=== PATIENT | female | born 2000 | race Caucasian/White ===

== ENCOUNTER 2023-06-30 07:00 | Emergency (ER) | payer OTHER, MEDICAID, SELFPAY ==
--- NOTE | ~2023-06-30 | XR_ITS ---
EXAMINATION: XR ANKLE, RIGHT CLINICAL INFORMATION: Injury COMPARISON: None available. TECHNIQUE: AP, lateral, and mortise views of the right ankle. FINDINGS: No fracture. Alignment is anatomic. No erosions. Joint spaces are maintained. Soft tissue swelling around lateral malleolus. XR/XR ankle RT 2V IMPRESSION: * No fracture. * Soft tissue swelling around lateral malleolus.
[2023-06-30 07:28] VITALS: BP 110/68; PULSE 81; RESP 16; TEMP 36.8; O2SAT 99; BMI 41.6
--- NOTE | 2023-06-30 09:03 | ED.GENADULT ---
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 Patient tripped going down two steps and roller her right ankle outwards since then has been having pain and swelling she fell and caught herself. Denies any other injuries. No headstrike or LOC, not on thinners. Denies numbness, tingling, chest pain, shortness of breath, nausea, vomiting, headache, vision changes, dizziness. Related Data Previous Rx's Medication Instructions Recorded ketorolac 10 mg tablet 10 mg PO TID PRN pain 5 days #15 06/30/23 tabs Allergies Allergy/AdvReac Type Severity Reaction Status Date / Time Penicillins Allergy Unknown Verified 06/30/23 07:27 Review of Systems Review of Systems: Constitutional : No Weight loss, No Fever, No Chills, No Fatigue, No Malaise ENT/Mouth : No sore throat, No Rhinorrhea Eyes: No Eye Pain, No Swelling, No Redness Cardiovascular : No Chest Pain, No SOB, No Dyspnea on Exertion, No Orthopnea, No Edema, No Palpitations Respiratory : No Cough, No Sputum, No Wheezing Gastrointestinal : No Nausea, No Vomiting, No Diarrhea, No Constipation, No abdominal Pain, No Hematochezia, No Melena Genitourinary : No Dysuria, No Urinary Frequency, No Hematuria, Musculoskeletal : + joint pain, No Myalgias, + Joint Swelling Skin : No Skin Lesions, No rash Neuro : No Weakness, No Numbness, No Dizziness, No Headache Psych : No Anxiety/Panic, No Depression All other systems reviewed and are negative Yes all other systems are reviewed and are negative [facility] Social History Social History Advance Directives: No Advance Directives Information Provided: No Physical Exam ED Vital Signs: Vital Signs - 24 hr 06/30/23 07:28 Temperature 98.3 F Pulse Rate 81 Respiratory Rate 16 Blood Pressure 110/68 Pulse Oximetry 99 Oxygen Delivery Method Room Air BMI result Body Mass Index 41.6 vss Appearance: Alert.? Oriented X3.? No acute distress.? Head: Normocephalic, atraumatic, no step-offs or deformities Eyes: Pupils equal, round and reactive to light.? Neck: Normal inspection.? Neck supple.? CVS: Normal heart rate and rhythm.? Pulses normal.? Respiratory: No respiratory distress.? Breath sounds normal.? Abdomen: Soft and nontender.? Skin: Skin warm and dry.? Normal skin color.? Normal skin turgor.? Extremities: No lower extremity edema.? No calf ttp. 5/5 strength to bilateral upper and lower extremities 2+ DP,AT,PT pulses equal and b/l. Full rom to b/l toes full rom to l ankle. Limited rom due to pain to right ankle. TTP overlying R. lateral malleolous. Normal senation distally Neuro: Oriented X 3.? No motor deficit.? No sensory deficit. CN 2-12 intact Course Reevaluation(s) Reevaluation #1: xray unremarkable. Will give aircast/ cruches and educate on proper use. Educated patient on diagnosis and treatment plan, answered all question, patient verbalizes understanding. At this time patient will be discharged home, advised to return with new or worsening symptoms. Educated on worrisome signs and symptoms and when to return. At this time I feel comfortable discharge home. Time: 09:16 Medical Decision Making Medical Decision Making MDM Narrative: 23 yo f presents s/p rolling her ankle on her stairs and falling PLANNING COORDINATOR PE w/ No lower extremity edema.? No calf ttp. 5/5 strength to bilateral upper and lower extremities 2+ DP,AT,PT pulses equal and b/l. Full rom to b/l toes full rom to l ankle. Limited rom due to pain to right ankle. TTP overlying R. lateral malleolous. Normal senation distally Likely sprain/strain unlikely fx/dislovation, threat to limb or NV compromise. No signs of open fx. Plan- imagng tordol, aircast and crutches. Differential Diagnosis Differential Diagnoses: The differential diagnosis associated with the presentation includes Likely sprain/strain unlikely fx/dislovation, threat to limb or NV compromise. No signs of open fx. Admission/Observation Consideration of admission/observation: Escalation of care including admission/observation considered Independent Interpretation I performed an independent interpretation of an: Plain X-Ray Radiology Impression Discussion of test interpretation with radiology: I have reviewed the radiologist's reading. Tests considered The following testing was considered but not selected: No head, chest, abd/ pelvis or cspine pain or injury somali head ct score neative neuro nonfocal No indication for imaging Prescription Management I considered prescription management with: Pain Medication (toradol ) Chronic Conditions Patient?s care impacted by: Other (No pmhx ) Critical Care Time Critical Care Time Critical Care Time: No Discharge Plan Discharge Clinical Impression: Ankle sprain and strain Patient Disposition: Home, Self-Care Instructions: Ankle Sprain (ED), Crutch Instructions (ED), Ankle Stirrup Splint (ED), R.I.C.E. Treatment (ED), Ice Pack Application (ED) Additional Instructions: Take your medications as prescribed. If you were prescribed antibiotics today, it is important that you take your medication to their entirety, do not skip any doses, do not finish them early. Follow-up with your primary care provider this week. Return to the emergency department with new or worsening symptoms. Such as fevers, chills, chest pain, shortness of breath, nausea, vomiting, dizziness, headache, vision changes, lethargy In case of emergency call 911 Toradol has been sent to your pharmacy, you tolerated this well in the department. Please take this as prescribed do not take this with ibuprofen, or other NSAIDs, do not mix this with alcohol. Side effects of this medication including increased risk for bleeding and possible kidney injury. XR/XR ankle RT 2V IMPRESSION: * No fracture. * Soft tissue swelling around lateral malleolus. Prescriptions: New ketorolac 10 mg tablet 10 mg PO TID PRN (Reason: pain) 5 Days Qty: 15 0RF Referrals: Physician,None [Primary Care Provider] - 2 days [facility] [Provider Group] - 2 days Stand Alone Forms: Work/School Release
== END 2023-06-30 09:34 | disposition home or self-care (01) ==
PROVIDERS: Emergency Provider Emergency Medicine
DX: S93.401A Sprain of unspecified ligament of right ankle, initial encounter (principal); M25.571 Pain in right ankle and joints of right foot; W10.9XXA Fall (on) (from) unspecified stairs and steps, initial encounter; Y93.9 Activity, unspecified; Y92.9 Unspecified place or not applicable; Y99.9 Unspecified external cause status
CPT/HCPCS: 29515; 73600; 99283; 99284

== ENCOUNTER 2024-01-11 11:35 | Outpatient (AMB) | payer OTHER, MEDICAID, SELFPAY ==
[2024-01-11 11:38] VITALS: BP 128/64; PULSE 97; TEMP 37.1; O2SAT 99; BMI 44.4
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
== END 2024-01-11 12:29 | disposition home or self-care (01) ==
PROVIDERS: Visit Provider Nurse Practitioner Family
DX: M79.641 Pain in right hand (principal); M79.644 Pain in right finger(s); S62.339A Displaced fracture of neck of unspecified metacarpal bone, initial encounter for closed fracture
CPT/HCPCS: 99214

== ENCOUNTER 2024-01-11 11:54 | Outpatient (REF) | payer OTHER, MEDICAID, SELFPAY ==
--- NOTE | ~2024-01-11 | XR_ITS ---
EXAMINATION: XR HAND, RIGHT CLINICAL INFORMATION: Hand pain attention to the fifth digit COMPARISON: None TECHNIQUE: 3 views of the hand FINDINGS: Acute fracture of the neck of the fifth metacarpal with mild volar angulation. Joint spaces are maintained. No cortical erosion. Soft tissue swelling along the dorsum of the hand. XR/XR hand RT min 3V IMPRESSION: 1. Acute fracture of the neck of the fifth metacarpal with mild volar angulation. 2. Soft tissue swelling along the dorsum of the hand.
== END 2024-01-11 11:55 | disposition home or self-care (01) ==
LOC: HO.HMGCX 11:54
PROVIDERS: Visit Provider Nurse Practitioner Family
DX: M79.641 Pain in right hand (principal); M79.644 Pain in right finger(s)
CPT/HCPCS: 73130

== ENCOUNTER 2024-01-13 13:02 | Outpatient (AMB) | payer OTHER, MEDICAID, SELFPAY ==
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
== END 2024-01-13 14:15 | disposition home or self-care (01) ==
PROVIDERS: Visit Provider Physician Assistant
DX: S62.336A Displaced fracture of neck of fifth metacarpal bone, right hand, initial encounter for closed fracture (principal)
CPT/HCPCS: 26600; 99204

== ENCOUNTER → 2024-01-13 13:02 | Outpatient (BNVA) | payer OTHER, MEDICAID, SELFPAY | PROVIDERS: Visit Provider Physician Assistant | DX: S62.336A Displaced fracture of neck of fifth metacarpal bone, right hand, initial encounter for closed fracture (principal) | CPT/HCPCS: 26600 ==

== ENCOUNTER 2024-01-29 07:43 | Outpatient (AMB) | payer OTHER, MEDICAID, SELFPAY ==
--- NOTE | 2024-01-29 07:57 | A.OFFVIS_ITS ---
Vital Signs 01/29/24 08:02 Height 5 ft 1 in Weight 235 lb BMI 44.4 Intake Visit Reasons: ov- cast changer- rt hand asael fx, DOI 01/11/24 Intake Note: Suzette is a 23 year old female who presents today for a cast change. Right 5th MC fx 01/11/24. Patient states that she is having numbness of the small finger as she feels that cast was squeezing the fingers on top of each other. She has her routine follow up scheduled in one week and is asking if she can be placed in a splint today rather than a cast as she is feeling claustrophobic in the cast. Allergies Penicillins Allergy (Verified 01/29/24 08:04) Unknown HPI HPI ov- cast changer- rt hand asael fx, DOI 01/11/24: Details: 23-year-old female who returns to the office today for a follow-up of right 5th metacarpal fracture, 01/11/24. She states she has numbness in her small finger due to the cast being uncomfortable and squeezing her fingers on top of each other. [facility] Social History (Updated 01/13/24 @ 13:17 by Jose E Corcoran) Alcohol intake: current Alcohol intake frequency: holidays/special occasions only Patient Tobacco Use Status: Never used Tobacco Current occupational status: employed Current occupation: domestic housekeeper/ right hand dominant Review of Systems Const All systems reviewed & are unremarkable except as noted in HPI and below Physical Exam Vital Signs: BMI result Body Mass Index 44.4 Const General: cooperative and no acute distress Orientation/consciousness: patient oriented x3 Resp Effort & Inspection: normal respiratory effort and able to speak in complete sentences Cardio Peripheral pulses: Peripheral pulses 2+ throughout Skin General skin exam: no rashes or lesions noted Neuro General: patient oriented x3 Extrem Other: Right hand:mild Tenderness to palpation over the fracture site of the 5th digits. Able to flex and extend all digits. Lacking 3 cm from making a closed fist. No scissoring of the little finger. Sensation intact. Capillary refill is brisk. Results Reviewed Results Reviewed: Xrays were obtained in the office today and personally reviewed by me of the right hand show fracture of the neck of the fifth metacarpal with mild volar angulation, stable appearance. Assessment & Plan Assessment & Plan (1) Closed boxer's fracture: Comment: Right Code(s): S62.339A - Displaced fracture of neck of unspecified metacarpal bone, initial encounter for closed fracture Category: Medical Qualifiers: Encounter type: subsequent encounter Fracture healing: with routine healing Qualified Code(s): S62.339D - Displaced fracture of neck of unspecified metacarpal bone, subsequent encounter for fracture with routine healing Plan She was transitioned to a Velcro wrist splint which she will wear like cast and only remove for hygiene. She will arsalan tape her ring finger to small finger to work on ROM. I would like to see her back in 3 weeks with x-rays, sooner if needed. Orders: Orders XR hand RT min 3V 01/29/24 M79.641 - Pain in right hand Patient Instructions: Scribed for Javon Benedict PA-C, by Ebenezer Carrera medical dir, on 01/29/2024 at 8:00 AM EST.? I, Javon Benedict PA-C, have personally reviewed and agree with th e information entered by the scribe. Coding Level of Care Code Global (69193) Diagnoses Closed boxnighat's fracture with routine healing, subsequent encounter S62.339D Encounter type: subsequent encounter Fracture healing: with routine healing
[2024-01-29 08:02] VITALS: BMI 44.4
== END 2024-01-29 08:55 | disposition home or self-care (01) ==
PROVIDERS: Visit Provider Physician Assistant
DX: S62.339D Displaced fracture of neck of unspecified metacarpal bone, subsequent encounter for fracture with routine healing (principal)
CPT/HCPCS: 99024

== ENCOUNTER 2024-01-29 07:43 | Outpatient (REF) | payer OTHER, MEDICAID, SELFPAY ==
--- NOTE | ~2024-01-29 | XR_ITS ---
EXAMINATION: XR HAND, RIGHT CLINICAL INFORMATION: Pain in right hand COMPARISON: December 2023 TECHNIQUE: PA, lateral, and oblique views of the right hand. FINDINGS: Previously noted fracture the distal fifth metacarpal redemonstrated without change in appearance and alignment. The remaining bones joints and soft tissues are unremarkable. XR/XR hand RT min 3V IMPRESSION: Unchanged appearance of the fifth metacarpal fracture.
== END 2024-01-29 07:44 | disposition home or self-care (01) ==
LOC: HO.HOSX 07:43
PROVIDERS: Visit Provider Physician Assistant
DX: S62.336D Displaced fracture of neck of fifth metacarpal bone, right hand, subsequent encounter for fracture with routine healing (principal)
CPT/HCPCS: 73130

== ENCOUNTER 2024-02-06 07:39 | Outpatient (REF) | payer OTHER, MEDICAID, SELFPAY | END 2024-02-06 07:40 | disposition home or self-care (01) | LOC: HO.HOSX 07:39 | PROVIDERS: Visit Provider Physician Assistant | DX: Z13.89 Encounter for screening for other disorder (principal) ==

== ENCOUNTER 2024-02-19 07:50 | Outpatient (REF) | payer OTHER, MEDICAID, SELFPAY ==
--- NOTE | ~2024-02-19 | XR_ITS ---
EXAMINATION: XR HAND, RIGHT CLINICAL INFORMATION: Right hand pain. COMPARISON: None available. TECHNIQUE: PA, lateral, and oblique views of the right hand. FINDINGS: Again seen is a boxer's type fracture of the head of the fifth metacarpal with some ventral angulation. There may be a tiny bit of new periosteal reaction. No other interval change seen when compared with the prior exam. XR/XR hand RT min 3V IMPRESSION: Boxer's type fracture fifth metacarpal with minimal interval healing.
== END 2024-02-19 07:51 | disposition home or self-care (01) ==
LOC: HO.HOSX 07:50
PROVIDERS: Visit Provider Physician Assistant
DX: M79.641 Pain in right hand (principal)
CPT/HCPCS: 73130

== ENCOUNTER 2024-02-19 08:21 | Outpatient (AMB) | payer OTHER, MEDICAID, SELFPAY ==
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
[2024-02-19 08:37] VITALS: BMI 44.4
== END 2024-02-19 08:46 | disposition home or self-care (01) ==
PROVIDERS: Visit Provider Physician Assistant
DX: S62.339D Displaced fracture of neck of unspecified metacarpal bone, subsequent encounter for fracture with routine healing (principal)
CPT/HCPCS: 99024

== ENCOUNTER 2024-04-01 08:08 | Outpatient (AMB) | payer OTHER, MEDICAID, SELFPAY ==
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
[2024-04-01 08:25] VITALS: BMI 44.4
== END 2024-04-01 08:33 | disposition home or self-care (01) ==
PROVIDERS: Visit Provider Physician Assistant
DX: S62.339D Displaced fracture of neck of unspecified metacarpal bone, subsequent encounter for fracture with routine healing (principal)
CPT/HCPCS: 99024

== ENCOUNTER 2024-04-01 10:00 | Outpatient (REF) | payer OTHER, MEDICAID, SELFPAY ==
--- NOTE | ~2024-04-01 | XR_ITS ---
EXAMINATION: XR HAND, RIGHT CLINICAL INFORMATION: Right hand pain for COMPARISON: 02/19/2024 TECHNIQUE: PA, lateral, and oblique views of the right hand. FINDINGS: There has been progressive osseous bridging and bone remodeling at the fifth metacarpal mass fracture as compared to prior. No new fractures. Soft tissue swelling is improved. Joint spaces appear well-preserved. No erosions. XR/XR hand RT min 3V IMPRESSION: Progressive healing of the fifth metacarpal fracture with solid osseous bridging.
== END 2024-04-01 10:01 | disposition home or self-care (01) ==
LOC: HO.HOSX 10:00
PROVIDERS: Visit Provider Physician Assistant
DX: M79.641 Pain in right hand (principal); S62.306D Unspecified fracture of fifth metacarpal bone, right hand, subsequent encounter for fracture with routine healing
CPT/HCPCS: 73130

== ENCOUNTER 2024-05-15 10:17 | Emergency (ER) | payer OTHER, SELFPAY ==
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
[2024-05-15 10:18] VITALS: BP 119/59; PULSE 68; RESP 16; TEMP 36.7; O2SAT 97; BMI 42.1
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
[2024-05-15 13:38] VITALS: BP 119/59; PULSE 68; RESP 16; TEMP 36.7; O2SAT 97
== END 2024-05-15 13:38 | disposition home or self-care (01) ==
PROVIDERS: Emergency Provider Emergency Medicine
DX: S13.4XXA Sprain of ligaments of cervical spine, initial encounter (principal); V43.52XA Car driver injured in collision with other type car in traffic accident, initial encounter; Y93.89 Activity, other specified; Y92.481 Parking lot as the place of occurrence of the external cause; Y99.9 Unspecified external cause status
CPT/HCPCS: 70450; 72125; 99283; 99284